=== PATIENT | male | born 1965 | race American Indian/Alaskan Native ===

== ENCOUNTER 2017-06-04 15:08 | Emergency (ER) | payer OTHER, SELFPAY ==
[2017-06-04 15:08] VITALS: BMI 31.6
[2017-06-04 15:20] VITALS: BP 127/63; PULSE 67; RESP 18; TEMP 98.3; O2SAT 98
--- NOTE | 2017-06-04 16:13 | ED PDOC ---
Upper Extremity Pain/Injury Time Seen by Provider: 06/04/17 15:23 Chief Complaint (Nursing): Upper Extremity Problem/Injury Chief Complaint (Provider): shoulder injury History Per: Patient History/Exam Limitations: no limitations Additional Complaint(s): 52yo M in ED for eval right shoulder pain x 3 weeks states with injury to shoulder while at work-states he doesn't alot of lifting. denies pain with ROM denies numbness tingling Chest pain. Past Medical History Reviewed: Historical Data, Nursing Documentation, Vital Signs Vital Signs: Last Vital Signs Temp 98.3 F 06/04/17 15:17 Pulse 67 06/04/17 15:17 Resp 18 06/04/17 15:17 BP 127/63 06/04/17 15:17 Pulse Ox 98 06/04/17 15:17 - Medical History PMH: Asthma, Bronchitis, Fractures (JAW), Gastritis Denies: Colonic Polyps, Depression, TIA - Surgical History Surgical History: Appendectomy, Endoscopy - Family History Family History: States: Unknown Family Hx - Immunization History Hx Tetanus Toxoid Vaccination: No Hx Influenza Vaccination: No Hx Pneumococcal Vaccination: No - Home Medications Home Medications: Ambulatory Orders Medication Instructions Recorded Albuterol HFA [Ventolin HFA 90 2 puff IH [id number] #1 inhaler 11/13/15 mcg/actuation (8 g)] - Allergies Allergies/Adverse Reactions: Allergies Allergy/AdvReac Type Severity Reaction Status Date / Time No Known Allergies Allergy Verified 10/03/16 09:13 Review of Systems ROS Statement: Except As Marked, All Systems Reviewed And Found Negative Musculoskeletal: Positive for: Shoulder Pain Physical Exam - Reviewed Nursing Documentation Reviewed: Yes Vital Signs Reviewed: Yes - Physical Exam Appears: Positive for: Well, Non-toxic, No Acute Distress Skin: Positive for: Normal Color, Warm, DRY Cardiovascular/Chest: Positive for: Regular Rate, Rhythm Respiratory: Positive for: CNT, Normal Breath Sounds Extremity: Positive for: Other (right shoulder: lump noted to ant. shoulder no AC joint tenderness no dec ROM nuerovasc intact. ) Neurologic/Psych: Positive for: Alert, Oriented - ECG O2 Sat by Pulse Oximetry: 98 - Radiology X-Ray: Interpreted by Me (bony spur noted. ) Medical Decision Making Medical Decision Making: no evidence of fx, however bony spur noted an lipoma. pt advised to have pmd f.u pt signed up for [facility] and advised to fjacklyn with pmd. Disposition - Clinical Impression Clinical Impression: Shoulder injury - Patient ED Disposition Is Patient to be Admitted: No Counseled Patient/Family Regarding: Studies Performed, Diagnosis, Need For Followup - Disposition Referrals: [facility] [place] [Outside] [facility] [place] [Outside] [facility] [Outside] Disposition: Routine/Home Disposition Time: 16:37 Condition: STABLE Instructions: Shoulder Sprain (ED), Lipoma (ED) Forms: [employer] ([place]ralt[place])
--- NOTE | 2017-06-04 16:35 | RAD ---
PROCEDURE: Radiographs of the Right Shoulder HISTORY: shpulder injury COMPARISON: No prior. FINDINGS: BONES: Normal. No fracture. JOINTS: Normal. Glenohumeral and acromioclavicular joints preserved. No osteoarthritis. SOFT TISSUES: Normal. OTHER FINDINGS: None. IMPRESSION: No acute findings related to/accounting for the clinical presentation. No preliminary report provided by emergency department personnel.
== END 2017-06-04 16:38 | disposition home or self-care (01) ==
LOC: H.ER 15:08
DX: S49.91XA Unspecified injury of right shoulder and upper arm, initial encounter (principal); X50.0XXA Overexertion from strenuous movement or load, initial encounter; Y93.89 Activity, other specified; Y92.69 Other specified industrial and construction area as the place of occurrence of the external cause; Y99.8 Other external cause status

== ENCOUNTER 2017-08-21 21:30 | Emergency (ER) | payer SELFPAY ==
[2017-08-21 21:31] VITALS: BMI 31.6
[2017-08-21 21:36] VITALS: BP 116/72; PULSE 62; RESP 16; TEMP 96.2; O2SAT 99
--- NOTE | 2017-08-21 22:47 | ED PDOC ---
HPI: General Adult Time Seen by Provider: 08/21/17 21:45 Chief Complaint (Nursing): Dizziness/Lightheaded Chief Complaint (Provider): Dizzy Spells History Per: Patient History/Exam Limitations: no limitations Onset/Duration Of Symptoms: Days (6-7) Have you had recent travel within the past 21 days to any of the following countries: [place], [place], [place] or [place]?: No Current Symptoms Are (Timing): Still Present Additional Complaint(s): Pedro Weinstein, a 52 year old male, with a past medical history of asthma and bronchitis presents to the ED complaining of dizzy spells x6-7 days. The patient states that his dizzy spells only occur at night and he thinks that he experiences them because he usually does not eat properly during the day. He reports that the dizzy spells most occur with [place] movement. Patient states that he has had similar symptoms in the past. Denies headache, vomiting, chest pain, diarrhea. PMD: Moreno Pedro Past Medical History Reviewed: Historical Data, Nursing Documentation, Vital Signs Vital Signs: Last Vital Signs Temp 96.2 F L 08/21/17 21:34 Pulse 62 08/21/17 21:34 Resp 16 08/21/17 21:34 BP 116/72 08/21/17 21:34 Pulse Ox 99 08/22/17 02:17 - Medical History PMH: Asthma, Bronchitis, Fractures (JAW), Gastritis Denies: Colonic Polyps, Depression, TIA - Surgical History Surgical History: Appendectomy, Endoscopy - Family History Family History: States: Unknown Family Hx - Living Arrangements Living Arrangements: With Family - Social History Current smoker - smoking cessation education provided: No Ex-Smoker (has not smoked in the last 12 months): No Alcohol: None Drugs: Other (marijuana) - Immunization History Hx Tetanus Toxoid Vaccination: No Hx Influenza Vaccination: No Hx Pneumococcal Vaccination: No - Home Medications Home Medications: Ambulatory Orders Medication Instructions Recorded Albuterol HFA [Ventolin HFA 90 2 puff IH [id number] #1 inhaler 11/13/15 mcg/actuation (8 g)] Meclizine [Antivert] 12.5 mg PO Q6H PRN #5 tab 08/22/17 - Allergies Allergies/Adverse Reactions: Allergies Allergy/AdvReac Type Severity Reaction Status Date / Time No Known Allergies Allergy Verified 08/21/17 21:34 Review of Systems ROS Statement: Except As Marked, All Systems Reviewed And Found Negative Cardiovascular: Negative for: Chest Pain Gastrointestinal: Negative for: Vomiting, Diarrhea Neurological: Positive for: Dizziness (dizzy spells). Negative for: Headache Physical Exam - Reviewed Nursing Documentation Reviewed: Yes Vital Signs Reviewed: Yes - Physical Exam Appears: Positive for: Non-toxic, No Acute Distress Head Exam: Positive for: ATRAUMATIC, NORMAL INSPECTION, NORMOCEPHALIC Skin: Positive for: Normal Color, Warm, Dry. Negative for: Rash Eye Exam: Positive for: Normal appearance, EOMI, PERRL. Negative for: Nystagmus ENT: Positive for: Normal ENT Inspection. Negative for: Nasal Congestion, Tonsillar Exudate, Tonsillar Swelling Neck: Positive for: Normal, Painless ROM, Supple Cardiovascular/Chest: Positive for: Regular Rate, Rhythm, Chest Non Tender. Negative for: Tachycardia Respiratory: Positive for: Normal Breath Sounds. Negative for: Wheezing, Respiratory Distress Gastrointestinal/Abdominal: Positive for: Normal Exam, Bowel Sounds, Soft. Negative for: Tenderness, Guarding, Rebound Back: Positive for: Normal Inspection. Negative for: L CVA Tenderness, R CVA Tenderness Extremity: Positive for: Normal ROM. Negative for: Tenderness, Deformity, Swelling Lymphatic: Positive for: Normal Exam. Negative for: Adenopathy Neurologic/Psych: Positive for: Alert, director plans II-XII (intact), Oriented, Gait ( stable). Negative for: Motor/Sensory Deficits, Aphasia, Facial Droop - Laboratory Results Result Diagrams: 08/21/17 23:25 08/21/17 23:25 - ECG O2 Sat by Pulse Oximetry: 99 (RA) Pulse Ox Interpretation: Normal Medical Decision Making Medical Decision Makin Initial Impression dizzy r/o vertigo, r/o intracranial process Initial Plan: * CT Head w/o Contrast * CMP * CBC * Antivert 25mg PO * Reevaluation 2305 CT FINDINGS: Brain: Unremarkable. No hemorrhage. No significant white matter disease. No edema. Ventricles: Unremarkable. No ventriculomegaly. Bones/joints: Unremarkable. No acute fracture. Soft tissues: Unremarkable. Sinuses: Unremarkable as visualized. No acute sinusitis. Mastoid air cells: Unremarkable as visualized. No mastoid effusion. IMPRESSION: No evidence of an acute intracranial abnormality. 0211 Upon re-evaluation, patient notes that he is feeling much better. Patient will be discharged with Rx for Meclazine. Dx: vertigo Patient is stable for discharge home. Scribe Attestation Documented by Lidia Jim acting as a scribe for Jyoti Barber MD. Provider Attestation: All medical record entries made by the Scribe were at my direction and personally dictated by me. I have reviewed the chart and agree that the record accurately reflects my personal performance of the history, physical exam, medical decision making, and the department course for this patient. I have also personally directed, reviewed, and agree with the discharge instructions and disposition. Disposition - Clinical Impression Clinical Impression: Dizziness, Vertigo - Patient ED Disposition Is Patient to be Admitted: No Counseled Patient/Family Regarding: Studies Performed, Diagnosis, Need For Followup - Disposition Referrals: [facility] [Outside] [facility] [Outside] Disposition: Routine/Home Disposition Time: 02:00 Condition: IMPROVED Additional Instructions: follow up with your primary doctor in 1-2 days return to the ED with any worsening or concerning symptoms Prescriptions: Meclizine [Antivert] 12.5 mg PO Q6H PRN #5 tab PRN Reason: Dizziness Forms: [employer] (Danish)
[2017-08-22 00:42] LABS: BASO # 0.1 K/uL (0.0-0.2); BASO % 1.2 % (0.0-2.0); EOS # 0.3 K/uL (0.0-0.7); EOS % 2.9 % (0.0-4.0); HEMATOCRIT 37.1 % (35.0-51.0); LYMPH # 3.1 K/uL (1.0-4.3); LYMPH % 34.9 % (20.0-40.0); MEAN CORPUSCULAR HEMOGLOBIN 30.5 pg (27.0-31.0); MEAN CORPUSCULAR HGB CONC 33.8 g/dL (33.0-37.0); MEAN PLATELET VOLUME 9.2 fl (7.2-11.7); MONO # 0.5 K/uL (0.0-0.8); MONO % 5.8 % (0.0-10.0); NEUT # 4.9 K/uL (1.8-7.0); NEUT % 55.2 % (50.0-75.0); RED CELL DISTRIBUTION WIDTH 12.4 % (11.5-14.5); WHITE BLOOD COUNT 8.9 K/uL (4.8-10.8)
[2017-08-22 00:55] LABS: ALB/GLOB RATIO 1.7 (1.0-2.1); ALKALINE PHOSPHATASE 66 U/L (38-126); ALT/SGPT 39 U/L (21-72); AST/SGOT 31 U/L (17-59); BILIRUBIN,TOTAL 1.2 mg/dl (0.2-1.3); BLOOD UREA NITROGEN 12 mg/dl (9-20); CALCIUM 8.7 mg/dL (8.4-10.2); CARBON DIOXIDE 26 mmol/L (22-30); CHLORIDE 105 mmol/L (98-107); GFR AFRICAN-AMERICAN > 60; GLUCOSE,RANDOM 79 mg/dL (75-110); POTASSIUM 3.6 MMOL/L (3.6-5.0); SODIUM 139 mmol/l (132-148); TOTAL PROTEIN 6.8 G/DL (6.3-8.2)
--- NOTE | 2017-08-22 06:11 | CT ---
PROCEDURE: CT HEAD WITHOUT CONTRAST. HISTORY: headache COMPARISON: None available. TECHNIQUE: Axial computed tomography images were obtained through the head/brain without intravenous contrast. Radiation dose: Total exam DLP = 848.30 mGy-cm. This CT exam was performed using one or more of the following dose reduction techniques: Automated exposure control, adjustment of the mA and/or kV according to patient size, and/or use of iterative reconstruction technique. FINDINGS: HEMORRHAGE: No intracranial hemorrhage. BRAIN: No mass effect or edema. No atrophy or chronic microvascular ischemic changes. VENTRICLES: Unremarkable. No hydrocephalus. CALVARIUM: Unremarkable. PARANASAL SINUSES: Unremarkable as visualized. No significant inflammatory changes. MASTOID AIR CELLS: Unremarkable as visualized. No inflammatory changes. OTHER FINDINGS: None. IMPRESSION: No acute intracranial abnormalities. No significant findings to account for the clinical presentation. Concordant results (preliminary interpretation) provided by [employer]. Procedure Completed: 22:49 Preliminary ([employer]) Report: Dictated and Authenticated: 23:06 Final Interpretation: 06:09 August 22, 2017.
== END 2017-08-22 02:30 | disposition home or self-care (01) ==
LOC: H.ER 21:30
DX: R42 Dizziness and giddiness (principal); J45.909 Unspecified asthma, uncomplicated

== ENCOUNTER 2018-10-08 22:14 | Emergency (ER) | payer SELFPAY ==
[2018-10-08 22:14] VITALS: BMI 31.6
[2018-10-08 22:54] VITALS: BP 136/83; PULSE 58; RESP 16; O2SAT 98
--- NOTE | 2018-10-08 23:18 | ED PDOC ---
HPI: CCC, URI, Sore Throat Time Seen by Provider: 10/08/18 23:00 Chief Complaint (Nursing): Dizziness/Lightheaded Chief Complaint (Provider): Dizziness/Lightheaded History Per: Patient History/Exam Limitations: no limitations Onset/Duration Of Symptoms: Days Associated Symptoms: Cough. denies: Nausea, Vomiting Additional Complaint(s): 53 years old male presents to ER for evaluation of intermittent nonvertiginous dizziness for the past few days. Patient reports experiencing 2 to 3 similar episodes before when he has ear infection. He states he also had cough and cold symptoms in the last few days, which he used OTC medications for. Patient denies any nausea, vomiting, headache, blurry vision or focal weakness. PMD: non provided Past Medical History Reviewed: Historical Data, Nursing Documentation, Vital Signs Vital Signs: Last Vital Signs Temp 97.4 F L 10/08/18 22:54 Pulse 58 L 10/08/18 22:54 Resp 16 10/08/18 22:54 BP 136/83 10/08/18 22:54 Pulse Ox 98 10/08/18 22:54 - Medical History PMH: Asthma, Bronchitis, Fractures (JAW), Gastritis Denies: Colonic Polyps, Depression, TIA - Surgical History Surgical History: Appendectomy, Endoscopy - Family History Family History: States: Unknown Family Hx - Social History Current smoker - smoking cessation education provided: Yes Alcohol: None Drugs: Denies - Immunization History Hx Tetanus Toxoid Vaccination: No Hx Influenza Vaccination: No Hx Pneumococcal Vaccination: No - Home Medications Home Medications: Ambulatory Orders Medication Instructions Recorded RX: Albuterol HFA [Ventolin HFA 90 2 puff IH [id number] #1 inhaler 11/13/15 mcg/actuation (8 g)] RX: Meclizine [Antivert] 12.5 mg PO Q6H PRN #5 tab 08/22/17 RX: Meclizine HCl 25 mg PO QID PRN #30 tablet 10/08/18 - Allergies Allergies/Adverse Reactions: Allergies Allergy/AdvReac Type Severity Reaction Status Date / Time No Known Allergies Allergy Verified 10/08/18 22:55 Review of Systems ROS Statement: Except As Marked, All Systems Reviewed And Found Negative Eyes: Negative for: Vision Change Respiratory: Positive for: Cough Gastrointestinal: Negative for: Nausea, Vomiting Neurological: Positive for: Dizziness. Negative for: Headache Physical Exam - Reviewed Nursing Documentation Reviewed: Yes Vital Signs Reviewed: Yes - Physical Exam Appears: Positive for: Non-toxic, No Acute Distress Head Exam: Positive for: ATRAUMATIC, NORMOCEPHALIC Skin: Positive for: Normal Color, Warm, Dry Eye Exam: Positive for: Normal appearance, EOMI, PERRL. Negative for: Nystagmus ENT: Positive for: Pharynx Is (clear), TM Is/Are (normal bilaterally), Nasal Congestion, Other (Erythematous bilateral nasal turbinates). Negative for: Pharyngeal Erythema, Tonsillar Exudate Neck: Positive for: Painless ROM, Supple Cardiovascular/Chest: Positive for: Regular Rate, Rhythm. Negative for: Murmur Respiratory: Positive for: Normal Breath Sounds. Negative for: Respiratory Distress Gastrointestinal/Abdominal: Positive for: Soft. Negative for: Tenderness Back: Positive for: Normal Inspection. Negative for: Decreased ROM Extremity: Positive for: Normal ROM. Negative for: Deformity Lymphatic: Negative for: Adenopathy Neurologic/Psych: Positive for: Alert, Oriented (x3). Negative for: Motor/Sensory Deficits - ECG O2 Sat by Pulse Oximetry: 98 (RA) Pulse Ox Interpretation: Normal Medical Decision Making Medical Decision Making: Time: 2229 Initial Impression: Dizziness and URI, benign exam Scribe Attestation: Documented by Edith Tejada, acting as a scribe for Ashleigh Bhatti MD. Provider Scribe Attestation: All medical record entries made by the Scribe were at my direction and personally dictated by me. I have reviewed the chart and agree that the record accurately reflects my personal performance of the history, physical exam, medical decision making, and the department course for this patient. I have also personally directed, reviewed, and agree with the discharge instructions and disposition. Disposition - Clinical Impression Clinical Impression: URI (upper respiratory infection), Dizziness - Patient ED Disposition Is Patient to be Admitted: No Counseled Patient/Family Regarding: Diagnosis, Need For Followup, Rx Given - Disposition Referrals: [facility] [Outside] (FOLLOW UP AT CLINIC NEXT WEEK FOR REEVALUATION) Disposition: Routine/Home Disposition Time: 23:16 Condition: STABLE Prescriptions: RX: Meclizine HCl 25 mg PO QID PRN #30 tablet PRN Reason: Dizziness Instructions: Cough, Runny Nose, and the Common Cold (DC), Dizziness, Nonvertigo, (DC) Forms: [facility] ED School/Work Excuse
[2018-10-09 04:08] VITALS: TEMP 98.2
== END 2018-10-08 23:35 | disposition home or self-care (01) ==
LOC: H.ER 22:14
DX: J06.9 Acute upper respiratory infection, unspecified (principal); R42 Dizziness and giddiness; F17.200 Nicotine dependence, unspecified, uncomplicated; J45.909 Unspecified asthma, uncomplicated